=== PATIENT | female | born 1995 | race Two or more races ===

== ENCOUNTER → 2019-04-21 15:34 | Outpatient (BNVA) | payer SELFPAY | PROVIDERS: Family Provider Family Medicine; Visit Provider Nurse Practitioner Family | DX: R05 Cough (principal); J45.901 Unspecified asthma with (acute) exacerbation; J10.1 Influenza due to other identified influenza virus with other respiratory manifestations | CPT/HCPCS: 87804 ==

== ENCOUNTER 2021-04-22 09:07 | Emergency (ER) | payer OTHER, SELFPAY ==
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
[2021-04-22 10:12] VITALS: BMI 26.2
[2021-04-22 10:36] VITALS: BP 115/69; PULSE 73; RESP 16; O2SAT 98
== END 2021-04-22 11:20 | disposition home or self-care (01) ==
PROVIDERS: Emergency Provider Physician Assistant; PCP Nurse Practitioner Family
DX: S80.01XA Contusion of right knee, initial encounter (principal); S90.31XA Contusion of right foot, initial encounter; S09.8XXA Other specified injuries of head, initial encounter; V89.2XXA Person injured in unspecified motor-vehicle accident, traffic, initial encounter
CPT/HCPCS: 70450; 73562; 73630; 99283

== ENCOUNTER → 2021-04-29 13:34 | Outpatient (BNVA) | payer OTHER, SELFPAY | PROVIDERS: PCP Nurse Practitioner Family; Referring Provider Nurse Practitioner Family; Visit Provider Podiatrist Foot & Ankle Surgery | DX: V89.2XXA Person injured in unspecified motor-vehicle accident, traffic, initial encounter (principal) | CPT/HCPCS: 73630 ==

== ENCOUNTER 2021-04-29 14:46 | Outpatient (CLI) | payer OTHER, SELFPAY | END 2021-04-29 14:47 | disposition home or self-care (01) | LOC: SPT 14:47 | PROVIDERS: PCP Nurse Practitioner Family; Visit Provider Podiatrist Foot & Ankle Surgery | DX: Z46.89 Encounter for fitting and adjustment of other specified devices (principal); M79.671 Pain in right foot | CPT/HCPCS: 97760; L4361 ==

== ENCOUNTER → 2021-05-13 14:01 | Outpatient (BNVA) | payer OTHER, SELFPAY | PROVIDERS: PCP Nurse Practitioner Family; Visit Provider Podiatrist Foot & Ankle Surgery | DX: S93.621A Sprain of tarsometatarsal ligament of right foot, initial encounter (principal); V89.2XXA Person injured in unspecified motor-vehicle accident, traffic, initial encounter | CPT/HCPCS: 73630 ==

== ENCOUNTER 2021-06-17 14:35 | Outpatient (CLI) | payer OTHER, SELFPAY ==
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
== END 2021-06-17 14:36 | disposition home or self-care (01) ==
LOC: RAD 14:36
PROVIDERS: PCP Nurse Practitioner Family; Visit Provider Podiatrist Foot & Ankle Surgery
DX: S93.621A Sprain of tarsometatarsal ligament of right foot, initial encounter (principal); S92.324A Nondisplaced fracture of second metatarsal bone, right foot, initial encounter for closed fracture; S93.331A Other subluxation of right foot, initial encounter; V89.2XXA Person injured in unspecified motor-vehicle accident, traffic, initial encounter; R60.0 Localized edema
CPT/HCPCS: 73718

== ENCOUNTER → 2021-07-23 07:59 | Outpatient (BNVA) | payer SELFPAY | PROVIDERS: PCP Nurse Practitioner Family; Visit Provider Podiatrist Foot & Ankle Surgery | DX: M79.671 Pain in right foot (principal) | CPT/HCPCS: 73630 ==

== ENCOUNTER 2021-09-20 06:54 | Day surgery (SDC) | payer SELFPAY ==
[2021-09-19 10:05] VITALS: BMI 25.7
[2021-09-20] VITALS (7 sets, daily range): BP systolic 97–113; BP diastolic 60–78; PULSE 58–104; RESP 18; TEMP 36.2–37.1; O2SAT 97–100
--- NOTE | 2021-09-20 | SCC_ITS ---
Procedure done: Right tarsometatarsal joint arthrodesis. CPT code 06687 6 seconds of fluoroscopic guidance, for a cumulative dose of 0.15 mGy, was provided to Dr. Schneider by the radiology department. C-arm images of the RIGHT foot were saved for the patient's permanent record. [facility]
[2021-09-20] MEDS: gabapentin 300 mg Capsule PO (07:22)
[2021-09-20] MEDS: CELEcoxib 200 mg Capsule 400 MG PO (07:22)
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
[2021-09-20] MEDS: sodium chloride 0.9% 1,000 ML 30 ML IV (07:45)
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
[2021-09-20 07:53] LABS: OR HCG Qualitative Urine Negative (Negative)
[2021-09-20] MEDS: midazolam 1 mg/mL INJ 2 mL 2 MG IVP (07:54)
--- NOTE | 2021-09-20 08:02 | XR_ITS ---
WS: [id number] XR foot RT min 3V* [id number] REASON FOR EXAM: post op FINDINGS: Plate and screw arthrodesis tarsal metatarsal joint of the right great toe in the tarsal metatarsal j oint of the second toe. Bone structure and surgical appliances are in proper position and alignment. XR/XR foot RT min 3V* [id number] IMPRESSION: Postoperative right foot without abnormality.
[2021-09-20] MEDS: clindamycin 600 MG/50 ML PREMIX 100 MG IV (08:14)
--- NOTE | 2021-09-20 08:29 | ANES.PROC ---
Anesthesia Procedures Procedure/Date: 09/20/21 Nerve Block ^: Nerve Block 1: Main Anesthesia: general anesthesia Time Out Performed: Yes Consent: requested by attending/covering physician, from patient, risks and benefits reviewed and patient agrees to proceed Anesthesia monitors applied: pulse oximetry, EKG, BP cuff and oxygen Nerve block position: supine Anesthetic Used: ropivicaine 0.5% (30) and with decadron (4 mg) Ultrasound used to: recognize landmarks Interscalene/Femoral BLK: 4 stimuplex 21 g needle used for position and inplane approach, visualize local anesthetic spread and no vascular puncture identified Injection: neg aspiration of heme Patient Tolerated Procedure: well and no complications Complications: none
[2021-09-20] MEDS: lidocaine 2% INJ 20 mL INJECTION (08:38)
[2021-09-20] MEDS: oxyCODONE-APAP 10-325 mg Tablet 1 TAB PO (10:29)
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
--- NOTE | 2021-09-20 12:00 | ANE.PACU2 ---
Inpatient post-anesthesia follow up: Airway intact: Yes Vital signs: Temperature 97.8 F Pulse Rate 68 Respiratory Rate 18 Blood Pressure 109/66 Pulse Oximetry 100 Oxygen Delivery Me thod Room Air Oxygen Flow Rate Fraction of Inspir ed Oxygen Hydration adequate: Yes Nausea and vomiting: No Pain level: 1 Mental status: Baseline
== END 2021-09-20 10:45 | disposition home or self-care (01) ==
PROVIDERS: Anesthesiology; PCP Nurse Practitioner Family; Visit Provider Podiatrist Foot & Ankle Surgery
PROC: (CPT 28485; principal; 2021-09-20 08:10)
DX: S93.324A Dislocation of tarsometatarsal joint of right foot, initial encounter (principal); V89.2XXA Person injured in unspecified motor-vehicle accident, traffic, initial encounter; J45.909 Unspecified asthma, uncomplicated
CPT/HCPCS: 28735; 73630; 76000; 81025; 84703; C1713; C9359; J1100; J2250; J2405; J2704; J2795; J3010; J3490; J7030

== ENCOUNTER → 2021-10-03 16:05 | Outpatient (BNVA) | payer OTHER, SELFPAY | PROVIDERS: PCP Nurse Practitioner Family; Visit Provider Podiatrist Foot & Ankle Surgery | DX: Z98.890 Other specified postprocedural states (principal) | CPT/HCPCS: 73630 ==

== ENCOUNTER → 2021-10-17 13:10 | Outpatient (BNVA) | payer SELFPAY | PROVIDERS: PCP Nurse Practitioner Family; Visit Provider Podiatrist Foot & Ankle Surgery | DX: Z98.890 Other specified postprocedural states (principal) | CPT/HCPCS: 73630 ==

== ENCOUNTER → 2021-10-30 10:43 | Outpatient (BNVA) | payer SELFPAY | PROVIDERS: PCP Nurse Practitioner Family; Visit Provider Podiatrist Foot & Ankle Surgery | DX: M79.671 Pain in right foot (principal) | CPT/HCPCS: 73630 ==

== ENCOUNTER 2021-10-30 11:44 | Outpatient (CLI) | payer SELFPAY | END 2021-10-30 11:45 | disposition home or self-care (01) | LOC: SPT 11:46 | PROVIDERS: PCP Nurse Practitioner Family; Visit Provider Podiatrist Foot & Ankle Surgery | DX: Z47.89 Encounter for other orthopedic aftercare (principal) | CPT/HCPCS: 97760; L4361 ==

== ENCOUNTER → 2021-11-21 12:53 | Outpatient (BNVA) | payer SELFPAY | PROVIDERS: PCP Nurse Practitioner Family; Visit Provider Podiatrist Foot & Ankle Surgery | DX: Z98.890 Other specified postprocedural states (principal); S92.211A Displaced fracture of cuboid bone of right foot, initial encounter for closed fracture; X58.XXXA Exposure to other specified factors, initial encounter | CPT/HCPCS: 73630 ==

== ENCOUNTER → 2021-12-09 15:15 | Outpatient (BNVA) | payer SELFPAY | PROVIDERS: PCP Nurse Practitioner Family; Visit Provider Podiatrist Foot & Ankle Surgery | DX: Z98.890 Other specified postprocedural states (principal) | CPT/HCPCS: 73630 ==

== ENCOUNTER 2021-12-18 06:00 | Outpatient (RCR) | payer SELFPAY | END 2021-12-20 23:59 | disposition home or self-care (01) | LOC: SPT 06:00 | PROVIDERS: PCP Nurse Practitioner Family; Visit Provider Podiatrist Foot & Ankle Surgery | DX: M25.571 Pain in right ankle and joints of right foot (principal) | CPT/HCPCS: 97161 ==

== ENCOUNTER 2021-12-21 06:00 | Outpatient (RCR) | payer SELFPAY | END 2022-01-20 23:59 | disposition home or self-care (01) | LOC: SPT 06:00 | PROVIDERS: PCP Nurse Practitioner Family; Visit Provider Podiatrist Foot & Ankle Surgery | DX: M25.571 Pain in right ankle and joints of right foot (principal) | CPT/HCPCS: 97033; 97110 ==

== ENCOUNTER 2022-01-21 06:00 | Outpatient (RCR) | payer SELFPAY | END 2022-02-19 23:59 | disposition home or self-care (01) | LOC: SPT 06:00 | PROVIDERS: PCP Nurse Practitioner Family; Visit Provider Podiatrist Foot & Ankle Surgery | DX: Z98.1 Arthrodesis status (principal); M25.571 Pain in right ankle and joints of right foot | CPT/HCPCS: 97033; 97110 ==

== ENCOUNTER → 2022-02-03 10:13 | Outpatient (BNVA) | payer SELFPAY | PROVIDERS: PCP Nurse Practitioner Family; Visit Provider Podiatrist Foot & Ankle Surgery | DX: Z98.890 Other specified postprocedural states (principal); S92.214D Nondisplaced fracture of cuboid bone of right foot, subsequent encounter for fracture with routine healing; S92.234D Nondisplaced fracture of intermediate cuneiform of right foot, subsequent encounter for fracture with routine healing; S92.324D Nondisplaced fracture of second metatarsal bone, right foot, subsequent encounter for fracture with routine healing; M72.2 Plantar fascial fibromatosis; X58.XXXD Exposure to other specified factors, subsequent encounter | CPT/HCPCS: 73630 ==

== ENCOUNTER 2022-06-03 12:06 | Outpatient (CLI) | payer SELFPAY | END 2022-06-03 12:07 | disposition home or self-care (01) | LOC: SPT 12:07 | PROVIDERS: PCP Nurse Practitioner Family; Visit Provider Podiatrist Foot & Ankle Surgery | DX: Z46.89 Encounter for fitting and adjustment of other specified devices (principal); M72.2 Plantar fascial fibromatosis; Z98.890 Other specified postprocedural states | CPT/HCPCS: 97760; L3030 ==

== ENCOUNTER → 2022-10-16 13:05 | Outpatient (BNVA) | payer SELFPAY | PROVIDERS: PCP Nurse Practitioner Family; Visit Provider Podiatrist Foot & Ankle Surgery | DX: Z98.890 Other specified postprocedural states; S92.214D Nondisplaced fracture of cuboid bone of right foot, subsequent encounter for fracture with routine healing; S92.234D Nondisplaced fracture of intermediate cuneiform of right foot, subsequent encounter for fracture with routine healing; S92.324D Nondisplaced fracture of second metatarsal bone, right foot, subsequent encounter for fracture with routine healing; X58.XXXD Exposure to other specified factors, subsequent encounter | CPT/HCPCS: 73630 ==

== ENCOUNTER → 2023-01-05 13:00 | Outpatient (BNVA) | payer SELFPAY | PROVIDERS: PCP Nurse Practitioner Family; Visit Provider Nurse Practitioner Women's Health | DX: N92.0 Excessive and frequent menstruation with regular cycle (principal); N64.4 Mastodynia | CPT/HCPCS: 81025 ==

== ENCOUNTER 2023-03-26 11:54 | Outpatient (CLI) | payer SELFPAY ==
--- NOTE | 2023-03-26 12:45 | US_ITS ---
WS: [id number] ULTRASOUND BREAST BILATERAL TECHNIQUE: Ultrasound bilateral breast focused area of concern. CLINICAL INFORMATION: N64.4 - Mastodynia COMPARISON: None. FINDINGS: RIGHT BREAST: Ultrasound 10 to 100 o'clock position. Dense underlying parenchymal tissue. No cystic o r solid lesions. LEFT BREAST: Ultrasound 11 to 1 o'clock position. Dense underlying parenchymal tissue. No cystic or s olid lesions. IMPRESSION: No suspicious findings in the areas of concern. BI-RADS 2 benign Recommend annual screening mammography age 40
== END 2023-03-26 11:55 | disposition home or self-care (01) ==
LOC: RAD 11:55
PROVIDERS: PCP Nurse Practitioner Family; Visit Provider Nurse Practitioner Women's Health
DX: N64.4 Mastodynia (principal)
CPT/HCPCS: 76642

== ENCOUNTER 2023-11-16 16:32 | Outpatient (CLI) | payer SELFPAY | END 2023-11-16 16:33 | disposition home or self-care (01) | LOC: LAB 16:34 | PROVIDERS: PCP Nurse Practitioner Family; Visit Provider Nurse Practitioner Women's Health | DX: N92.6 Irregular menstruation, unspecified (principal) | CPT/HCPCS: 36415; 84702 ==

== ENCOUNTER → 2024-02-15 08:03 | Outpatient (BNVA) | payer SELFPAY | PROVIDERS: PCP Nurse Practitioner Family; Visit Provider Podiatrist Foot & Ankle Surgery | DX: S92.324D Nondisplaced fracture of second metatarsal bone, right foot, subsequent encounter for fracture with routine healing (principal); S92.234D Nondisplaced fracture of intermediate cuneiform of right foot, subsequent encounter for fracture with routine healing; M79.671 Pain in right foot; S92.214D Nondisplaced fracture of cuboid bone of right foot, subsequent encounter for fracture with routine healing; X58.XXXD Exposure to other specified factors, subsequent encounter; Z98.890 Other specified postprocedural states | CPT/HCPCS: 73630 ==

== ENCOUNTER → 2024-08-08 09:59 | Outpatient (BNVA) | payer SELFPAY | PROVIDERS: PCP Nurse Practitioner Family; Visit Provider Podiatrist Foot & Ankle Surgery | DX: M79.671 Pain in right foot (principal); M19.171 Post-traumatic osteoarthritis, right ankle and foot; S92.214D Nondisplaced fracture of cuboid bone of right foot, subsequent encounter for fracture with routine healing; S92.234D Nondisplaced fracture of intermediate cuneiform of right foot, subsequent encounter for fracture with routine healing; S92.324D Nondisplaced fracture of second metatarsal bone, right foot, subsequent encounter for fracture with routine healing; X58.XXXD Exposure to other specified factors, subsequent encounter; Z98.890 Other specified postprocedural states | CPT/HCPCS: 73630 ==

== ENCOUNTER 2024-09-15 19:29 | Emergency (ER) | payer SELFPAY ==
[2024-09-15 19:31] VITALS: BP 128/72; PULSE 70; TEMP 36.9; O2SAT 100; BMI 28.3
--- OUTSIDE RECORDS SUMMARY | 2024-09-15 19:37 | XMS_ITS | Clinical Summary ---
Author Organization [facility] [address] [place] Address [address] [place] [address] Phone Care Team Providers Care Button Machine Operator Name Role Phone Unavailable Primary Care Provider Unavailabl e Allergies Active Allergy Reactions Criticality Noted Date Comments Penicillins Anaphylaxis High 04/08/2018 Medications fluticasone (FLOVENT HFA) 110 mcg/actuation HFA Aerosol InhalerIndications :Exhaustion,Primar y hypothyroidism Take 2 Puffs by inhalation 2 times daily. Active levonorgestrel (MIRENA INTRAUTERINE)Indic ations:Exhaustion, Primary hypothyroidism by Intrauterine route. Active albuterol (PROVENTIL,VENTOLI N) 2.5 mg /3 mL (0.083 %) Solution for NebulizationIndica tions:Exhaustion,P rimary hypothyroidism Take 2.5 mg by inhalation one time only. Active cetirizine (ZyrTEC) 10 mg tabletIndications: Exhaustion,Primary hypothyroidism Take 10 mg by mouth daily. Active albuterol HFA 90 mcg inhalerIndications :Exhaustion,Primar y hypothyroidism Take 2 Puffs by inhalation every 6 hours as needed for Shortness of Breath. Active levothyroxine 75 mcg tabletIndications: Exhaustion,Primary hypothyroidism Take 1 Tablet PO every morning with 8 oz. Of water on empty stomach 30 minutes prior to meals/other meds. 90 Tablet 6 11/20/19 19 Active liothyronine (CYTOMEL) 5 mcg TabletIndications: Primary hypothyroidism,Exh austion TAKE 1 TABLET BY MOUTH TWICE DAILY 180 Tablet 04/15/19 20 Active Active Problems Problem Noted Date Diagnosed Date Exhaustion 04/08/2018 Primary hypothyroidism 04/08/2018 Feeling poorly 04/08/2018 Falling hair 04/08/2018 Weight gain 04/08/2018 Obesity (BMI 30.0-34.9) 04/08/2018 Social History Tobacco Use Types Packs/Day Years Used Date Smoking Tobacco: Never Smokeless Tobacco: Never Alcohol Use Standard Drinks/Week Comments Yes 1 (1 standard drink = 0.6 oz pur e alcohol) Comments Unknown Sex and Gender Information Value Date Recorded Sex Assigned at Not on file 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 Gender Identity Not on file Sexual Orientation Not on file 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 Not on file Not on file Not on file Last Filed Vital Signs Vital Sign Reading Time Taken Comments Blood Pressure 112/72 07/23/2018 11:15 AM CDT Pulse 68 07/23/2018 11:15 AM CDT Temperature - - Respiratory Rate - - Oxygen Saturation - - Inhaled Oxygen Concentration - - Weight 93.4 kg (206 lb) 07/23/2018 11:15 AM CDT Height 162.6 cm (5' 4 ) 07/23/2018 11:15 AM CDT Body Mass Index 35.36 07/23/2018 11:15 AM CDT Plan of Treatment Health Maintenance Due Date Last Done Comments DTAP/TDAP/TD VACCINES (1 - Tdap) 2013 HEPATITIS B VACCINES (1 of 3 - 19+ 3-dose series) 2013 CERVICAL CANCER SCREENING 09/17/2015 HPV/Cotest (21-29) 09/17/2015 PAP SMEAR 09/17/2015 INFLUENZA VACCINE (#1) 2023 HPV/Cotest (30-65) 2024 HPV VACCINES Aged Out No longer eligi ble based on patient's age to complete this topic
--- OUTSIDE RECORDS SUMMARY | 2024-09-15 19:37 | XMS_ITS | Clinical Summary ---
Author Organization [facility] Address [address] Gutierrez: Epic Prelude ADT [place] [address] Care Team Providers Care Sole Leveler Name Role Phone Unavailable Primary Care Provider Unavailabl e Allergies Active Allergy Reactions Criticality Noted Date Comments Penicillins Anaphylaxis High 04/08/2018 Medications levothyroxine 75 mcg tabletIndications: Exhaustion,Primary hypothyroidism Take 1 Tablet PO every morning with 8 oz. Of water on empty stomach 30 minutes prior to meals/other meds. 90 Tablet 6 11/20/19 19 Active liothyronine (CYTOMEL) 5 mcg TabletIndications: Primary hypothyroidism,Exh austion TAKE 1 TABLET BY MOUTH TWICE DAILY 180 Tablet 0 04/15/19 20 Active albuterol sulfate 90 mcg/Actuation inhalerIndications :Exhaustion,Primar y hypothyroidism Take 2 Puffs by inhalation every 6 hours as needed for Shortness of Breath. 04/08/19 19 Active albuterol (PROVENTIL,VENTOLI N) 2.5 mg /3 mL (0.083 %) Solution for NebulizationIndica tions:Exhaustion,P rimary hypothyroidism Take 2.5 mg by inhalation one time only. 04/08/19 Active cetirizine (ZyrTEC) 10 mg tabletIndications: Exhaustion,Primary hypothyroidism Take 10 mg by mouth daily. 04/08/19 Active levonorgestrel (MIRENA INTRAUTERINE)Indic ations:Exhaustion, Primary hypothyroidism by Intrauterine route. 04/08/19 Active fluticasone propionate (FLOVENT HFA) 110 mcg/actuation HFA Aerosol InhalerIndications :Exhaustion,Primar y hypothyroidism Take 2 Puffs by inhalation 2 times daily. 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
--- NOTE | 2024-09-15 19:45 | XR_ITS ---
WS: [id number] Exam: XR foot LT min 3V* [id number] Date/Time of Exam: 09/15/2024 7:45 PM Reason For Exam: laceration, injury No fracture noted. The joints are preserved. No soft tissue foreign bodies. Bandaging material noted about the forefoot. XR/XR foot LT min 3V* [id number] IMPRESSION: 1. No fracture or other significant finding.
--- NOTE | 2024-09-15 21:34 | ED_ITS ---
HPI - Extremity Problem 2 General: Chief complaint: Extremity Injury, Lower Stated complaint: Sliced L foot with sawblade Time Seen by Provider: 09/15/24 19:44 History of Present Illness: Patient is a 29-year-old female that reports to the emergency room after she was utilizing a sawblade to meet her yard, when she was in sandals, then noted the sawblade came off and to her foot causing a laceration x 2. She stated that at the time blood was squirting. She did not function. She had her mother bring her belt to decrease the pressure to her foot. This happened just prior to arrival. Her tetanus is not up-to-date. Associated symptoms: Deny chest pain or fever(s) Related Data Home Medications ?Medication ?Instructions ?Recorded ?Confirmed albuterol sulfate 90 mcg/actuation 1 inh inhalation ON CE PRN 04/18/19 08/08/24 aerosol inhaler Shortness Of Breath diindolylmethane 150 mg-broccoli cap PO 08/11/2208/08 seed extract 30 mg capsule hydroxyzine HCl 10 mg tablet 10 mg PO TID PRN 08/11/22 08/08/24 levothyroxine 125 mcg tablet 125 mcg PO DAILY 08/11/22 08/08/24 (Synthroid) citalopram 10 mg tablet (Celexa) 5 mg PO DAILY 4 08/08/24 Previous Rx's ?Medication ?Instructions ?Recorded albuterol sulfate 90 mcg/actuation 2 puff inhalation Q 6H PRN 04/18/19 aerosol inhaler (Ventolin HFA) shortness of breath or wheezing #8.5 grams Sole supports #1 ea 02/03/22 meloxicam 15 mg tablet 15 mg PO DAILY 30 days #30 t abs 02/15/24 oseltamivir 75 mg capsule 75 mg PO DAILY #5 caps 05/01 cephalexin 500 mg capsule 500 mg PO BID 3 days #6 caps 09/15/24 Allergies Allergy/AdvReac Type Severity Reaction Status Date / Time Penicillins Allergy rash Verified 09/15/24 19:43 Review of Systems 2 General: Reports: 10 or more systems reviewed and unremarkable except in HPI and below Const: Denies: fever(s) or chills Eyes: Denies: change in vision or blurry vision Card: Denies: chest pain or palpitations Resp: Denies: dyspnea or productive cough GI: Denies: abdominal pain, nausea or vomiting : Denies: flank pain or difficulty voiding Musc: Reports: extremity pain and joint pain Neuro: Denies: headache(s) or numbness in extremities Psych: Denies: anxiety or depression PFSH ED 2 PFSH: Medical History control counseling Autoimmune thyroiditis Asthma Surgical History Hx of foot surgery Hx of section Family History Mother Cancer Hypertension Father Cancer Social History Smoking and tobacco/nicotine status: former use of tobacco/nicotine Alcohol intake: never Substance/Drug Use: never Physical Exam 2 Const: COMMON NORMALS: no acute distress, average body habitus and patient oriented x3 HENMT: COMMON NORMALS: normocephalic, atraumatic, TM's normal bilaterally and Normal external nose present HEAD & SCALP: normocephalic and atraumatic F MICHAEL & SINUS: normal facial exam NOSE: Normal external nose present T YMPANIC MEMBRANE: TM's normal bilaterally Resp: COMMON NORMALS: normal respiratory effort and clear to auscultation bilaterally AUSCULTATION: clear to auscultation bilaterally Cardio: COMMON NORMALS: regular rate and regular rhythm RATE: regular rate RHYTHM: regular rhythm GI: COMMON NORMALS: Normal to inspection, nondistended, normoactive bowel sounds present, Soft to palpation and non-tender PALPATION: Yes Soft to palpation : COMMON NORMALS: Yes no CVA tenderness BLADDER/KIDNEY EXAM: Yes no CVA tenderness Back/Pelvis: COMMON NORMALS: no CVA tenderness Extremity: COMMON NORMALS: full ROM RIGHT LOWER EXTREMITY: Yes foot & digits (laceration) Right foot and digits: Yes tendon exam LEFT LOWER EXTREMITY: Yes foot & digits Left foot and digits: Yes inspection (intact), Yes palpation (intact) and Yes tendon exam (intact) Neuro: COMMON NORMALS: patient oriented x3 Psych: COMMON NORMALS: mental status grossly normal and Normal thought process present THOUGHT PROCESS: Normal thought process present Skin: SKIN IMAGES (FEMALE): 1. laceration 2. laceration Procedures Laceration Laceration 1: Site: lower extremity Size (cm): 7 Description: linear and flap Depth: simple, single layer Local Anesthetic: lidocaine 1% Skin layer closed with: nylon Size (cm): 3-0 Number of sutures: 6 Size: 3-0 Number of sutures: 3 Technique: simple interrupted and other (Patient had 2 lacerations next each other from the sawblade.) Course 2 Vital Signs: Vital signs: Vital Signs Temperature 98.4 F 09/15/24 19:31 Pulse Rate 88 09/15/24 21:59 Respiratory Rate 18 09/15/24 21:59 Blood Pressure 128/76 09/15/24 21:59 Pulse Oximetry 100 09/15/24 21:59 Oxygen Delivery Me thod Room Air 09/15/24 19:31 MDM - Extremity (Nontraumatic) Medical Decision Making Patient had a total of 9 sutures, 6 in the more medial laceration, and 3 in the smaller lateral laceration. Patient is already established with orthopedist named Dr. Aldrich. She states that she will follow-up with him to ensure that her tendinopathy is not needing repair. She had full range of motion, although her laceration x 2 was repaired, this will need to be followed up. Patient states understanding. XR interpretation done by ED provider, pending radiology final review ED provider radiology interpretation(s): no acute Discharge Plan Discharge Patient Disposition: Home Clinical Impression: Laceration of left foot excluding toes Qualifiers: Encounter type: initial encounter Qualified Code(s): S91.312A - Laceration without foreign body, left foot, initial encounter Condition: Stable Prescriptions: New cephalexin 500 mg capsule 500 mg PO BID 3 Days Qty: 6 0RF No Action albuterol sulfate 2.5 mg /3 mL (0.083 %) solution for nebulization 2.5 mg inhalation ONCE Qty: 1 0RF albuterol sulfate 90 mcg/actuation HFA aerosol inhaler 1 inh INHALATION ONCE PRN (Reason: Shortness Of Breath) albuterol sulfate [Ventolin HFA] 90 mcg/actuation HFA aerosol inhaler 2 puff INHALATION Q6H PRN (Reason: shortness of breath or wheezing) Qty: 8.5 0RF citalopram [Celexa] 10 mg tablet 5 mg PO DAILY meloxicam 15 mg tablet 15 mg PO DAILY 30 Days Qty: 30 3RF (DME) Sole supports See Rx Instructions .Route .MEDSUPPLY Qty: 1 0RF Rx Instructions: As directed levothyroxine [Synthroid] 125 mcg tablet 125 mcg PO DAILY hydroxyzine HCl 10 mg tablet 10 mg PO TID PRN diindolylmethane-broccoli seed 150-30 mg capsule PO oseltamivir 75 mg capsule 75 mg PO DAILY Qty: 5 0RF Discharge Orders: Discharge ED (Routine); Ordered 09/15/24 Ordered By: Yuki Menjivar Referrals: Jes Pablo FNP [Primary Care Provider, Unknown] Discharge Diet: Usual diet Discharge Activity: Resume usual activity Patient Instructions: Laceration (ED), Patient Portal & Bart Instructions Activity Restrictions/Additional Instructions: Remove sutures in 10-14 days Take antibiotics as prescribed. Take probiotic or active culture yogurt to avoid infectious diarrhea You may return here, your primary, or remove sutures at home, however it will be a new visit to return here. Return to ED for fever, worsening pain, redness, continued bleeding Print Language: Mauritanian Coding Level of Care Code ED Microbiology Professor for Irma Penaloza
[2024-09-15] MEDS: lidocaine 1% 10 ML INJ SUBCUT (21:35)
[2024-09-15] MEDS: HYDROcodone-acetaminophen 5-325 mg Tablet 1 TAB PO (21:53)
[2024-09-15] MEDS: tetanus-dipt-pertussis 0.5 mL SDV IM (21:54)
[2024-09-15] MEDS: cephALEXin 500 mg Capsule PO (21:54)
[2024-09-15 21:59] VITALS: BP 128/76; PULSE 88; RESP 18; O2SAT 100
== END 2024-09-15 22:00 | disposition home or self-care (01) ==
PROVIDERS: Emergency Provider Physician Assistant; PCP Nurse Practitioner Family
DX: S91.312A Laceration without foreign body, left foot, initial encounter (principal); Z87.891 Personal history of nicotine dependence; W27.0XXA Contact with workbench tool, initial encounter
CPT/HCPCS: 12002; 73630; 90715; 99283; J9999